=== PATIENT | male | born 1945 | race Caucasian/White ===

== ENCOUNTER 2017-04-27 14:56 | Emergency (ER) | payer OTHER ==
[~2017-04-27] VITALS: Wt 83.9 kg
[~2017-04-27 14:56] MED LIST: NAPROSYN500 MG PO; PREDNISONE20 M1 PO; ROBITUSSIN AC 110 ML PO; SYNTHROID,LEVO50 MCG PO; VICODIN 5/500 505 MG PO; ZITHROMAX250 MG PO
[2017-04-27] MEDS ORDERED: TESSALON PERLE100 MG PO (16:31)
== END 2017-04-27 16:54 | disposition home or self-care (01) ==
LOC: ED 14:56
DX: T48.4X5A Adverse effect of expectorants, initial encounter (principal); R05 Cough; Z79.899 Other long term (current) drug therapy; Z88.0 Allergy status to penicillin; Z91.013 Allergy to seafood; Y92.9 Unspecified place or not applicable

== ENCOUNTER 2023-12-02 04:49 | Emergency (ER) | payer MEDICARE ==
[~2023-12-02] VITALS: Ht 170.1 cm; Wt 74.4 kg
[~2023-12-02 04:49] MED LIST changes: +TESSALON PERLE100 MG PO
[2023-12-02] MEDS ORDERED: VITAMIN C500 M8 PO (05:20)
[2023-12-02] MEDS ORDERED: ALLEGRA HIVES180 MG PO (05:20)
[2023-12-02] MEDS ORDERED: ATORVASTATIN CA40 M1 PO (05:21)
[2023-12-02] MEDS ORDERED: GOOD SENSE ASP325 MG PO (05:22)
[2023-12-02] MEDS ORDERED: DIPHENHYDRAMINE25 M2 PO (05:23)
[2023-12-02] MEDS ORDERED: FEROSUL325 MG PO (05:24)
[2023-12-02] MEDS ORDERED: PROBIOTIC1 EACH PO (05:25)
[2023-12-02] MEDS ORDERED: LEVOFLOXACIN750 M2 PO (05:25)
[2023-12-02] MEDS ORDERED: LEVOTHYROXINE50 MCG PO (05:26)
[2023-12-02] MEDS ORDERED: METFORMIN HYD1000 MG PO (05:26)
[2023-12-02] MEDS ORDERED: MOTRIN IB200 M1 PO (05:27)
[2023-12-02] MEDS ORDERED: TYLENOL325 M1 PO (05:27)
[2023-12-02] MEDS ORDERED: MULTIPLE VITAM1 EAC2 PO (05:27)
[2023-12-02] MEDS ORDERED: Acetaminophen/Hydrocodone 5 MG/325 MG TABLET PO ONE (05:55)
== END 2023-12-02 10:22 | disposition home or self-care (01) ==
LOC: ED 04:49
DX: M25.552 Pain in left hip (principal); E11.9 Type 2 diabetes mellitus without complications; D64.9 Anemia, unspecified; Z88.0 Allergy status to penicillin; Z91.041 Radiographic dye allergy status; Z91.013 Allergy to seafood